=== PATIENT | male | born 1975 ===

== ENCOUNTER → 2018-10-07 | Outpatient (CLI) | payer OTHER | LOC: COL.RAD 07:42 | DX: K21.9 Gastro-esophageal reflux disease without esophagitis (principal); K58.9 Irritable bowel syndrome, unspecified | CPT/HCPCS: A9541 ==

== ENCOUNTER → 2020-10-28 | Outpatient (CLI) | payer OTHER | LOC: COL.RAD 06:50 | DX: G43.109 Migraine with aura, not intractable, without status migrainosus (principal) ==

== ENCOUNTER → 2023-03-22 | Outpatient (CLI) | payer OTHER | LOC: CANSCHCLI → COL.RAD 08:39 | DX: H53.8 Other visual disturbances (principal); R90.89 Other abnormal findings on diagnostic imaging of central nervous system | CPT/HCPCS: A9575 ==